=== PATIENT | female | born 1975 | race Caucasian/White ===

== ENCOUNTER 2023-04-28 06:24 | Outpatient (CLI) | payer BC, SELFPAY ==
--- NOTE | 2023-04-28 07:52 | W.ANESCHARGE ---
Anesthesia Charges Start Date/Time Anesthesia Start Date: 04/28/23 Anesthesia Start Time: 07:20 Stop Date/Time Anesthesia Stop Date: 04/28/23 Anesthesia Stop Time: 07:49
--- NOTE | 2023-04-28 08:28 | W.ANESCHARGE ---
Anesthesia Charges Start Date/Time Anesthesia Start Date: 04/28/23 Anesthesia Start Time: 07:20 Stop Date/Time Anesthesia Stop Date: 04/28/23 Anesthesia Stop Time: 07:49
== END 2023-04-28 06:25 | disposition home or self-care (01) ==
LOC: OP CLINIC 06:25
PROVIDERS: PCP Family Medicine; Visit Provider Internal Medicine Gastroenterology
DX: Z12.11 Encounter for screening for malignant neoplasm of colon (principal); K63.5 Polyp of colon
CPT/HCPCS: 45380; 811; 88305; J2704